=== PATIENT | male | born 1995 | race Caucasian/White ===

== ENCOUNTER 2017-09-23 09:01 | Emergency (ER) | payer MEDICAID, OTHER ==
[~2017-09-23] VITALS: Ht 167.6 cm; Wt 115.0 kg
[~2017-09-23 09:01] MED LIST: METH500T PO
[2017-09-23 10:37] VITALS: BP 135/89
== END 2017-09-23 10:39 | disposition home or self-care (01) ==
LOC: ER 09:02
DX: T78.49XA Other allergy, initial encounter (principal); Z79.899 Other long term (current) drug therapy; Y92.89 Other specified places as the place of occurrence of the external cause
CPT/HCPCS: 99281